=== PATIENT | female | born 1970 | race Caucasian/White ===

== ENCOUNTER → 2020-12-01 14:22 | Outpatient (CLI) | payer OTHER, SELFPAY ==
[2020-12-01 14:49] LABS: COVID19 -Nasal RAPID Negative (Negative)
== END ==
PROVIDERS: Family Provider Orthopaedic Surgery Orthopaedic Surgery of the Spine; Visit Provider Obstetrics & Gynecology
DX: Z01.812 Encounter for preprocedural laboratory examination (principal); Z20.822 Contact with and (suspected) exposure to COVID-19
CPT/HCPCS: 87635

== ENCOUNTER 2020-12-02 12:16 | Day surgery (SDC) | payer OTHER, SELFPAY ==
[2020-11-26 13:00] VITALS: BMI 27.6
[2020-12-02] VITALS (17 sets, daily range): BP systolic 98–125; BP diastolic 60–78; PULSE 65–78; RESP 11–19; TEMP 36.1–36.8; O2SAT 90–100; BMI 27.6
--- NOTE | 2020-12-02 | PATH_ITS ---
[facility] Accession Number: [id number] . 01 Material submitted: . uterus - UTERUS, BILATERAL FALLOPIAN TUBES AND LEFT OVARY . 02 Diagnosis: Uterus, Bilateral Fallopian Tubes and Left Ovary, Laparoscopic Supracervical Hysterectomy, Left Salpingo-oophorectomy, and Right Salpingectomy (Weight 310 grams, Morcellated Uterus): Late secretory endometrium; negative for glandular hyperplasia, cytologic atypia, or malignancy. Myometrium involved by adenomyosis and with one intramural leiomyoma (5 mm); negative for atypia or malignancy. Uterine serosa with no significant histomorphologic abnormality. Ovary with a 1.5 cm benign endometrioma, with capsular involvement by endometriosis, and with capsular adhesions. Fallopian tubes x2 with benign paratubal cysts (1-3 mm) and with serosal involvement by endometriosis; negative for atypia or malignancy. [facility] 12/05/2020 1603 Local . 02 Electronically signed: . Lawanda Valenzuela MD, Pathologist NPI- [id number] . 01 Gross description: . The specimen is received in formalin, labeled uterus, bilateral fallopian tubes and left ovary and consists of a 310-gram, 18.0 x 17.0 x 8.0 cm morcellated uterus with a gonzáles-pink smooth serosa. A cervix is not identified. Sectioning reveals a gonzáles-pink endometrium measuring 0.1 cm in thickness. The myometrium is gonzáles-pink and diffusely trabeculated with a 0.5 x 0.5 x 0.5 cm gonzáles-white whorled leiomyoma with no areas of hemorrhage, necrosis or cystic degeneration. Also received is a 2.0 x 2.0 x 2.0 cm ovary with a gonzáles-pink ragged external surface. Sectioning reveals a 1.5 x 1.0 x 0.8 cm gonzáles-pink smooth-walled cyst with no papillary excrescences. Additionally, there are two detached fallopian tubes measuring 3.5 cm in length by 1.0 cm in diameter and 4.5 cm in length by 0.9 cm in diameter. The serosa is gonzáles-pink to pink-purple and smooth to ragged with multiple gonzáles paratubal cysts ranging from 0.1-0.3 cm. Sectioning reveals a gonzáles-pink mucosa and a stellate lumen measuring 0.3 cm in diameter. [employer] sections are submitted. . A1: Lower uterine segment. A2-A5: Uterus. A6: [employer] leiomyoma. A7: [employer] ovary. A8: [place] fallopian tube, merchandiser retail representative cross-sections and bisected fimbria. A9-A10: Longer fallopian tube, central cross-sections and bisected fimbria. (EA:[id number]) /MRV 12/03/2020 1209 Local . 02 Pathologist provided ICD-10: N80.9, N83.299 . 02 CPT . 937909 Performed at: 01 [facility] Cytology [address] [id number] MD Kilo Godwin MD Phone: [phone] Performed at: 02 [facility] [address] [place] [id number] MD Diamond Schwab MD Phone: [phone]
[2020-12-02] MEDS: LACTATED RINGERS 1,000 ML 42 ML IV ×2 (13:04→14:54)
--- NOTE | 2020-12-02 13:33 | PM.PREOP ---
Pre-operative Note COVID-19 COVID-19 status: Negative Result date/Date tested (Pos, Neg/Pending): 12/01/20 Interval Note History & Physical reviewed/Exam performed by Physician: Yes Changes to H&P: No
[2020-12-02] MEDS: CEFAZOLIN 1 GM VIAL 2 GM IV (13:55)
--- NOTE | 2020-12-02 14:19 | SUR.OPER ---
Lithotomy on padded OR bed. [place] Pad Positioner under torso. Head on gel donut, arms padded and tucked at sides. Legs secured in padded yellow fins stirrups.
[2020-12-02] MEDS: ROPIVACAINE 0.2% PF 2 MG/ML 10ML AMP 20 ML INJ (14:24)
[2020-12-02] MEDS: BUPIVACAINE 0.25% W/ EPI 30 ML VIAL INJ ×2 (14:25→14:26)
--- NOTE | 2020-12-02 16:36 | PM.OP.1 ---
Operative Date/Time/Diagnoses Date of procedure: 12/02/20 Time of procedure: 16:36 Pre-op diagnosis: Menorrhagia with left hydrosalpinx and stress urinary incontinence Post-op diagnosis: same Procedure & Clinicians Procedure: Laparoscopic supracervical hysterectomy with left salpingo oophorectomy and right salpingectomy with TVT exact retropubic suburethral sling Same procedure as scheduled: Yes Indications: Menorrhagia with hydrosalpinx on ultrasound. Stress urinary incontinence. Surgeon: Elva Pompa [employer] Chief: Justin Sanchez Anesthesia Type: General Operative Notes Findings: Enlarged globular uterus suggestive of adenomyosis. Left hydrosalpinx with adhesions around the left ovary with endometrioma. Mild endometriosis. Hypermobile urethra. Closure Type: primary Specimen(s): other (Uterus above the level of the bladder with right fallopian tube and left tube in over) Prosthetic devices, grafts, tissues, transplants, or devices: TVT exact suburethral sling Estimated Blood Loss (mL): 100 Blood products transfused: none Procedure in detail: Patient is brought to the operating room where she underwent general anesthesia and placed in [facility]. She was prepped and draped in the usual sterile fashion. A check list was reviewed with the staff in the room prior to beginning of the case. Patient had pulsatile stockings in place and functional. 2 g of Ancef were in prior to beginning of the case.. A Nava catheter was placed. A single-tooth tenaculum was placed on the anterior lip of the cervix and the cervix dilated to a #6 Hegar dilator. The uterine manipulator was placed through the cervix into the uterus with the balloon inflated with 3 mL of air. The area of the umbilical incision and the 5 mm right and left lower quadrant incisions were injected with Marcaine. An incision was made with scalpel. The verries needle was placed into the abdomen and confirmed in the appropriate place with withdrawal on a syringe and then free flow of fluid down through the needle. The abdomen was insufflated with CO2. The needle was removed and a 5 mm trocar placed without difficulty. There did not appear to be any damage is placement of the trocar. The right and left lower quadrant incisions were made with the scalpel and the trochars placed without damage to internal structures. The PK forceps were used to cauterize along the right mesosalpinx followed by the round ligament. The utero-ovarian ligament was cauterized and cut Sequential bites were taken down the broad ligament. The uterine artery was cauterized. The anterior bladder flap was developed. The left infundibulopelvic ligament was cauterized and cut. Hugging the ovary the broad ligament was cauterized. Sequential bites taken down the broad ligament until the uterine arteries were able to be cauterized. An incision was made above the level bladder pushing the bladder away from the cervix. The CECY loop was placed around the uterus and the uterus was amputated above the level of the bladder. Bleeding was controlled with the PK forceps. The PK forceps were used to cauterize in the endocervical canal. A supracervical incision was made and an 11 mm port placed. A 15 mm Endo Catch bag was placed in the abdomen. The uterus, tubes and left ovary were placed in the bag and brought up through the suprapubic port site. The Richard O was placed. The uterus was hand morselized. The abdomen was reinsufflated and adequate hemostasis was noted. The trochars were removed and the CO2 allowed escape from the abdomen. The fascia layer of the suprapubic site was repaired with 0 Polysorb suture. Skin was closed with 4-0 Monocryl suture at the suprapubic site and the other 3 sites. 15 mL of quarter percent Marcaine with epinephrine were diluted with15 mL of saline 10 cc was injected around the mid urethra. An incision was made over the mid urethra with a scalpel. The incision was extended laterally. A Nava catheter was placed. The suprapubic exit sites were marked with a marking pen. The needles attached to the sling were placed from the bottom up and left in place. The catheter was removed and 300 mL of saline were placed in the bladder and cystoscopy was performed. A 70?? scope followed by a 0?? scope were used to look at the bladder and the urethra was no damage apparent with placement of the needles. Both ureters were seen to be functional. The graft was brought up loosely under the mid urethra. With sharp pressure against the bladder there was some leakage of urine. The plastic sheath was removed. The graft was cut under the skin of the suprapubic sites. Skin was closed with Steri-Strips. The vaginal incision was closed with 2-0 vicryl suture. Patient went to recovery room in good condition. Counts of instruments and sponges were correct. Dr. Sanchez was present throughout the case to assist with holding the camera, retracting, cauterizing and cutting the structures on the left side of the patient, as well as assisting with morselization of the uterus. Complications: none Post-operative Condition: stable Disposition: Acute Care Plan for aftercare: Patient will be monitored for urinary retention. Replacement of Nava if unable to urinate or post void residual greater than 100 cc. Likely home in a.m. if stable
[2020-12-02] MEDS: ONDANSETRON 4 MG/2 ML INJ IV ×3 (16:45→18:03)
[2020-12-02] MEDS: fentaNYL 100 MCG/2 ML INJ IV ×2 (16:46→17:01)
--- NOTE | 2020-12-02 17:04 | SUR.PHASEI ---
Assisted patient with turning onto left side for comfort. Cleaned perineal area and applied fresh jarrod pad. Scant to moderate amount of bleeding noted to pad but no clots appreciated.
[2020-12-02] MEDS: LACTATED RINGERS 1,000 ML 100 ML IV (18:03)
[2020-12-02] MEDS: KETOROLAC 30 MG/ML VIAL IV (18:03)
--- NOTE | 2020-12-02 18:15 | PC.NURSE ---
Patient up to unit at 1740. A&O x4. Dressings CDI and changed jarrod pad in PACU before arrival. Patient c/o nausea and some pain in her abdomen. Zofran given and scheduled toradol given as well. VSS and currently on RA. at bedside, call light in reach.
[2020-12-02] MEDS: OXYCODONE IR 5 MG TABLET PO (22:22)
[2020-12-03] VITALS: BP 92/52; PULSE 87; RESP 18; TEMP 37.2; O2SAT 94
[2020-12-03] MEDS: KETOROLAC 30 MG/ML VIAL IV ×2 (00:19→05:56)
[2020-12-03] MEDS: LACTATED RINGERS 1,000 ML 100 ML IV (03:46)
[2020-12-03 03:55] VITALS: O2SAT 94
[2020-12-03 03:57] VITALS: BP 98/60; PULSE 72; RESP 18; TEMP 37.2; O2SAT 94
[2020-12-03 04:59] LABS: Add Manual Diff / Slide Review NO; Basophils Absolute Auto 0 /uL (0-100); Basophils Percent Auto 0.2 % (0-2); Eosinophils Absolute Auto 0 /uL (0-450); Hematocrit 36.8 % (36-46); Lymphocytes Absolute Auto 1200 /uL (1100-4500); Mean Corpuscular HGB Conc 32.4 % (30-36); Mean Corpuscular Hemoglobin 27.9 PG (26-34); Mean Corpuscular Volume 86.1 fL (80-100); Monocytes Absolute Auto 1000 /uL (0-900); Monocytes Percent Auto 7.1 % (3-14); Neutrophils Absolute Auto 11500 /uL (1500-7000); Neutrophils Percent Auto 83.7 % (50-75); Platelet Count 272 X10^3/uL (150-400); Red Blood Cell Count 4.28 X10^6/uL (4.0-5.2); Red Cell Distribution Width 13.6 % (11.6-14.8); White Blood Cell Count 13.7 X10^3/uL (4.5-11.0)
--- NOTE | 2020-12-03 07:09 | P.DS_ITS ---
History of Present Illness History of Present Illness Date Patient Seen: 12/03/20 Time Patient Seen: 07:10 Date of Onset of Symptoms: 12/02/20 Chief complaint: OPB Narrative: Patient underwent a laparoscopic supracervical hysterectomy with bi lateral salpingectomies and left oophorectomy with TVT exact suburethral sling on 12/02/2020. Discharge Providers Provider Discharge Date: 12/03/20 Primary care physician: Doctor Veronique MD Discharge provider: Elva Pompa MD Summary Hospital Course Discharge Diagnosis: menorrhagia with left hydrosalpinx and stress urinary incontinence Hospital Course: Patient underwent a laparoscopic supracervical hysterectomy with bilateral salpingectomies and left oophorectomy with TVT exact sling on 12/02/2020. Patient is able to urinate. She is ambulatory. She denies any nausea at this time. Pain is tolerable only discomfort with movement. Status at Discharge Cognitive/behavioral status at discharge: oriented Functional status at discharge: independent ambulation Overall status at discharge: patient is progressing back to baseline Time Spent with Patient Time spent: Less than 30 minutes Exam Vital Signs (past 8 hours): - 12/03/20 00:00 12/03/20 03:55 12/03/20 03:57 Temperature 99.0 F 98.9 F Pulse Rate 87 72 Respiratory Rate 18 18 Blood Pressure 92/52 L 98/60 Pulse Oximetry 94 94 94 Oxygen Delivery Method Room Air Oxygen Flow Rate 0 Narrative Exam Narrative: Abdomen is soft, nontender. Dressings are clean, dry, intact. Minimal vaginal bleeding. Extremities without edema and nontender Objective Labs Result Diagrams: 12/03/20 04:37 Labs: Laboratory Results - last 24 hr 12/03/20 04:37 WBC 13.7 H RBC 4.28 Hgb 12.0 Hct 36.8 MCV 86.1 MCH 27.9 MCHC 32.4 RDW 13.6 Plt Count 272 Neut % (Auto) 83.7 H Lymph % (Auto) 9.0 L [place] % (Auto) 7.1 Eos % (Auto) 0.0 L Baso % (Auto) 0.2 Neut # (Auto) 63277 H Lymph # (Auto) 1200 [place] # (Auto) 1000 H Eos # (Auto) 0 Baso # (Auto) 0 PFSH Social History household members: spouse and family Smoking Status: Never smoker alcohol intake: current Discharge Assessment & Plan Assessment and Plan Assessment: Patient doing well postoperative. She is urinating. Plan of Treatment: Patient was discharged home to be followed up in 2 weeks. Precautions reviewed with the patient. Patient has her pain medicine or idea at home as well as her postop appointment Discharge Plan Discharge Plan Patient Disposition: Home Discharge orders & Medications Discharge Orders: Discharge (Order); Ordered 12/03/20 Ordered By: Elva Pompa Prescriptions: Continued oxycodone-acetaminophen 5-325 mg tablet 1 tab PO Q4-6H PRN (Reason: pain) Qty: 20 RF: 0 docusate sodium [Colace] 100 mg Capsule 100 mg PO DAILY RF: 0 Follow up/Referrals: Elva Pompa MD [Physician] - As previously scheduled (12/17) Doctor iPper MD [Primary Care Provider] - Diet/Activity/Treatments Diet: Regular Activity: No lifting over 20 lb or anything in vagina for 6 weeks Skin/Wound/Dressing Care Report to your healthcare provider any signs of infection, such as:: chills, fever, increased pain and unusual redness Dressing: May remove dressings today. Leave Steri-Strips in place for 1 week can get wet just pat dry. In one week can get wet and rub off Visit Report/Discharge Packet Instructions: DI for Hysterectomy Discharge Data Primary Care Provider: Doctor Veronique Attending Provider: Elva Pompa Quality VTE Deep Vein Thrombosis/Pulmonary Embolism Present on Admission: No
[2020-12-03 07:45] VITALS: BP 102/59; PULSE 77; RESP 16; TEMP 36.6; O2SAT 95
[2020-12-03] MEDS: OXYCODONE IR 5 MG TABLET PO (08:38)
[2020-12-03] MEDS: DOCUSATE 100 MG CAPSULE PO (08:38)
[2020-12-03] MEDS: SODIUM CHLORIDE 0.9% FLUSH 10 ML IV (08:39)
[2020-12-03 08:41] VITALS: O2SAT 95
--- NOTE | 2020-12-03 09:25 | PC.NURSE ---
Went over dc instructions and medications with patient,questions answered. Patient taken via wc to vehicle driven by spouse, patient had all belongings.
== END 2020-12-03 09:15 | disposition home or self-care (01) ==
LOC: OR 12:18 → AC 12:18
PROVIDERS: Family Provider Orthopaedic Surgery Orthopaedic Surgery of the Spine; Referring Provider Specialist; Visit Provider Specialist
PROC: 0UT94ZL Resection of Uterus, Supracervical, Percutaneous Endoscopic Approach (ICD-10-PCS; CPT 58544; principal; 2020-12-02 13:30)
PROC: 0TSD0ZZ Reposition Urethra, Open Approach (ICD-10-PCS; CPT 58544; 2020-12-02 13:30)
DX: N92.0 Excessive and frequent menstruation with regular cycle (principal); N39.3 Stress incontinence (female) (male); N36.41 Hypermobility of urethra; N70.11 Chronic salpingitis; N80.0 Endometriosis of uterus; N73.6 Female pelvic peritoneal adhesions (postinfective); N80.1 Endometriosis of ovary; N83.8 Other noninflammatory disorders of ovary, fallopian tube and broad ligament; N80.2 Endometriosis of fallopian tube; D25.1 Intramural leiomyoma of uterus
CPT/HCPCS: 58544; 57288; 36415; 85025; C1771; J0330; J0690; J1100; J1885; J2405; J2704; J2795; J3010